=== PATIENT | female | born 1975 | race Caucasian/White ===

== ENCOUNTER 2021-04-10 02:59 | Observation (INO) ==
[2021-04-10] MEDS ORDERED: SODIUM CHLORIDE 0.9% 1000ML 1,000 ML IV ONE (03:30)
--- NOTE | 2021-04-10 03:33 | Emergency Department Note ---
Impression & Plan Suicide attempt by acetaminophen overdose, Depression ED Provider Note Name: CLAIRE LAMAR Age: 46 Sex: F Arrives Via: Walk-In Informant: Patient, ED Provider: Andrew Rivera MD Chief Complaint: Suicide Attempt Impression: As per impressions above Medical Decision Makin-year-old female with a history of depression, hypothyroidism, anxiety arrives for evaluation following a suicide attempt at home. Early in the evening she had taken multiple tablets of Ativan without successfully killing herself and thus took which she reports as 7 g of Tylenol followed by an equally sized handful of Tylenol. Her initial Tylenol level was drawn roughly 2 hours after her ingestion. Patient makes many statements throughout the evaluation and repe at evaluations about how she just wants to and that she does not want us to save her. Patient's mood is somewhat noncongruent as at times she is laughing, primarily about the fact that her Covid test is negative and that she should not of Covid at least. Other labs are unremarkable besides her elevated Tylenol level. I did discuss with poison control who agreed with empirically starting NAC given the patient's stated overdose amount. EKG is unremarkable without evidence of prolonged QTC or other medication involvement. Patient was started on N-acetylcysteine and hospitalist was consulted for further management as she will require serial Tylenol levels and further monitoring. I will note that following admission I did order a 4-hour Tylenol level which returned at 48. This is somewhat confusing given her report of taking 14 g of Tylenol 4 hours earlier which would usually resolve a much higher level than 48. It is also trended down significantly from the 2-hour level. Is unclear whether she actually took as much Tylenol as she claims for whether she took it earlier in the night than she is admitting to. Prior Medical Record and Triage/Nursing Notes reviewed by Me Additional history obtained from chart Differentials:Overdose, toxicologic, infection, hypoglycemia, electrolyte abnormalities, cardiac sources, intracerebral event, neurologic, trauma, as well as other pathologies. Vital Signs: reviewed and remarkable for mild tachycardia Interventions: 1 L normal saline IV, n-acetylcysteine Labs:Reviewed and remarkable for Tylenol level 100 at 2 hours EKG:Per My Interpretation: Indication Overdose: NSR 96 bpm, qtc 459. No Ectopy. No Ischemia. No previous EKGs for comparison Cardiac/Tele Monitoring: Cardiac Monitoring: An Order was placed for continuous cardiac monitoring. The monitor shows a rate of 90 with a normal sinus rhythm. Consults:Dr Carmona Plan: Disposition:Hospitalization. Condition: Good History of Present Illness:46-year-old female arrives following an attempted suicide overdose. Patient states she has been depressed for her entire life and is managed by her PCP on multiple medications for depression. She states she has been having significant issues with her and they have been going through marriage counseling. She states recently she is felt that she is want to . This evening around 8:52 PM she took 17 tablets of 1 mg Ativan by mouth and went to bed she awoke sometime between 1am 2:30a, and as she was still alive she decided to attempt to kill herself again. Patient states she looked up on [employer] how much Tylenol she would have to take to kill herself and counted out 7000 mg of p.o. Tylenol (325 mg tablets) and took this by mouth. She then poured out another almost equal handful of tablets and swallowed those as well. She took these with beer. Patient states she wants to and does not want us to make her better. She is only here because she states her found out she had overdosed and brought her to the ER for further evaluation. Patient denies any previous suicide attempts and denies any other medication ingestion or drug ingestion this evening. She denies cutting herself or another attempt at harm. Patient states that the primary reason for killing herself is that she is upset with her marriage and does not feel her is nice to her. Patient states that marriage counseling has not made things better. She states that just talking to her makes things worse. When asked if she has been physically assaulted patient is evasive and does not answer the question. Patient denies any physical injury currently. She states she does not need medical intervention and just wants to . Patient denies any drug use this evening. She believes she had 2-3 beers. Patient has no history of psychiatric admission. Patient states family has long history of depression denies any suicide attempts. ROS: See above HPI for pertinent positives & negatives. A total of 10 systems reviewed and were otherwise negative. 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 Crying periodically EYES: No scleral icterus, unremarkable pupils. ENT: Mucous membranes moist, no nasal congestion. NECK: No masses appreciated, nomeningismus, trachea is midline. RESPIRATORY: No dyspnea. Clear to auscultation and equal bilaterally. No wheeze, no rhonchi. CARDIOVASCULAR: Tachy.No murmurs, rubs, gallops appreciated. GASTROINTESTINAL: Abdomen soft, non-tender, no peritonitis.Bowel sounds positive.No masses appreciated. BACK: No midline tenderness, no CVA tenderness EXTREMITIES: Normal motion all extremities, no cyanosis, no edema. NEUROLOGIC: Alert and oriented, no acute motor or sensory deficits, no focal weakness, cranial nerves grossly intact. SKIN: No rash, no jaundice, no diaphoresis. PSYCH: Sad, depressed, admit suicidal ideation with attempt GCS: 15 ED Course: Times/Reassessments: Multiple repeat evaluations patient continues to states she just wants to go home and . Critical Care: I have personally spent 37 minutes of critical care time in the direct managem ent of this patient. Acute suicide attempt with Tylenol Overdose requiring N-Acetylcystine and admission. This was a life/limb threatening event. This 37 minutes is in excess of all separately billable procedures. Andrew Rivera MD Past Med/Surg History Social History Smoking Status: Never smoker Feels Safe at Home: Yes Allergies Allergies Allergy/AdvReac Type Severity Reaction Status Date / Time latex Allergy Mild ITCHING Verified 04/10/21 07:26 Home Meds Home Medications Medication Instructions Recorded Confirmed calcium carbonate 600 mg calcium 600 mg PO DAILY #0 05/24/14 04/10/21 (1,500 mg) tablet cholecalciferol (vitamin D3) 125 125 mcg PO DAILY #0 05/24/14 04/10/21 mcg (5,000 unit) tablet (Vitamin D3) Cbd Oil Sublingual 1 tab SUBLINGUAL BID 04/10/21 Collagen Plus Vitamin C 1 tab PO DAILY 04/10/21 04/10/21 buspirone 10 mg tablet 10 mg PO BID 04/10/21 04/10/21 lactobacillus combination no.4 3 0 mmu cells PO DAILY 04/10/21 04/10/21 billion cell capsule (Probiotic) magnesium 200 mg tablet 400 mg PO DAILY 04/10/21 04/10/21 methylsulfonylmethane 1,000 mg 1,000 mg PO DAILY 04/10/21 04/10/21 tablet (MSM) multivitamin 1 tab PO DAILY 04/10/21 04/10/21 mvi,min-folic acid 400 mcg-black 1 tab PO DAILY 04/10/21 04/10/21 coh 40 mg-isoflav 40 mg-jujube tablet (Estroven Menopause) solifenacin 10 mg tablet 10 mg PO DAILY 04/10/21 04/10/21 vitamin B complex 1 tab PO DAILY 04/10/21 04/10/21 vortioxetine 20 mg tablet 20 mg PO DAILY 04/10/21 04/10/21 (Trintellix) Results & Data (ED) Vital Signs Vital Signs - 24 hr 04/10/21 03:11 04/10/21 03:59 04/10/21 05:36 Temperature 36.3 C L Temperature Source Temporal Artery Scan Pulse Rate 107 H Pulse Rate [Left Finger] 88 Respiratory Rate 18 Respiratory Effort / Characteristics Non-Labored Spontaneous Respiratory Depth Normal Blood Pressure 139/78 Blood Pressure [Left Arm] 149/90 H Blood Pressure Mean 98 Blood Pressure Mean [Left Arm] 109 Blood Pressure Position [Left Arm] Sitting Pulse Oximetry 98 97 99 Oxygen Delivery Method Room Air Room Air Oxygen Flow Rate 0 Sepsis Recent Fever Within 48 Hours No Sepsis New/Unexplained Change in Mental Status No Sepsis Action Taken by Nursing No Action Required 04/10/21 07:00 Temperature Temperature Source Pulse Rate Pulse Rate [Left Finger] 83 Respiratory Rate 17 Respiratory Effort / Characteristics Non-Labored Spontaneous Respiratory Depth Normal Blood Pressure Blood Pressure [Left Arm] 140/93 Blood Pressure Mean Blood Pressure Mean [Left Arm] 108 Blood Pressure Position [Left Arm] Pulse Oximetry 95 Oxygen Delivery Method Room Air Oxygen Flow Rate Sepsis Recent Fever Within 48 Hours Sepsis New/Unexplained Change in Mental Status Sepsis Action Taken by Nursing Laboratory Data Result diagrams: 04/10/21 03:40 04/10/21 03:40 Lab Results 04/10/21 04/10/21 04/10/21 Range/Units 03:00 03:40 03:40 WBC 7.52 (4.8-10.8) K/uL RBC 4.13 L (4.2-5.4) M/uL Hgb 12.7 (12.0-16.0) g/dL Hct 37.5 (37-47) % MCV 90.8 (80-100) fL MCH 30.8 (25-34) pg MCHC 33.9 (32-36) g/dL RDW Std Deviation 42.9 (36.4-46.3) fL RDW Coeff of Keri 13.0 (11.5-14.5) % Plt Count 346 (130-400) K/uL MPV 9.3 (7.4-10.4) fL Immature Gran % (Auto) 0.3 % Neut % (Auto) 56.8 % Lymph % (Auto) 32.2 % Bates % (Auto) 9.2 % Eos % (Auto) 1.2 % Baso % (Auto) 0.3 % Neut # (Auto) 4.28 (1.4-6.5) K/uL Lymph # (Auto) 2.42 (1.2-3.4) K/uL Bates # (Auto) 0.69 H (0.11-0.59) K/uL Eos # (Auto) 0.09 (0-0.5) K/uL Baso # (Auto) 0.02 (0-0.2) K/uL Immature Gran # (Auto) 0.02 (0.00-0.02) K/uL PT (9.0-12.0) Seconds INR (0.9-1.1) APTT (21.0-31.0) Seconds PTT Ratio Sodium 137 (136-145) mmol/L Potassium 3.4 L (3.5-5.1) mmol/L Chloride 104 (98-107) mmol/L Carbon Dioxide 25 (21-32) mmol/L Anion Gap 8.0 (3-11) BUN 12 (7-18) mg/dl Creatinine 0.95 (0.6-1.2) mg/dl Est Cr Clr Drug Dosing 68.4 ml/min Est GFR ( Amer) 82.1 ml/min Est GFR (Non-Af Amer) 70.8 ml/min BUN/Creatinine Ratio 12.9 (10-20) Glucose 100 H (70-99) mg/dl Calcium 8.8 (8.5-10.1) mg/dl Total Bilirubin 0.3 (0.2-1) mg/dl Direct Bilirubin (0-0.2) mg/dl AST 14 L (15-37) U/L ALT 22 (12-78) Alkaline Phosphatase 101 (45-117) U/L Total Protein 7.8 (6.4-8.2) gm/dl Albumin 3.6 (3.4-5.0) gm/dl Globulin 4.2 H (2.5-4.0) gm/dl Albumin/Globulin Ratio 0.9 (0.9-2) TSH 3.290 (0.300-4.500) uIu/ml HCG, Qual (Negative) Urine Color Urine Appearance (Clear) Urine pH (4.5-7.5) Ur Specific [place] (1.000-1.030) Urine Protein (Negative) Urine Glucose (UA) (Negative) Urine Ketones (Negative) Urine Blood (Negative) Urine Nitrite (Negative) Urine Bilirubin (Negative) Urine Urobilinogen (Negative) Ur Leukocyte Esterase (Negative) Salicylates (2.8-20) mg/dl Urine Opiates Screen (Neg) Ur Methadone, Qual (Neg) Acetaminophen (10-30) ug/ml Urine Barbiturates (Neg) Ur Phencyclidine (PCP) (Neg) U Amphetamin/Meth Scrn (Neg) MDMA (Ecstasy) Screen (Neg) U Benzodiazepines Scrn (Neg) Ur Cocaine Metabolite (Neg) U Marijuana (THC) Screen (Neg) Ethyl Alcohol mg/dL (0-3) mg/dl SARS-CoV-2, RNA, NAAT NEGATIVE (NEGATIVE) 04/10/21 04/10/21 04/10/21 Range/Units 03:40 03:40 03:40 WBC (4.8-10.8) K/uL RBC (4.2-5.4) M/uL Hgb (12.0-16.0) g/dL Hct (37-47) % MCV (80-100) fL MCH (25-34) pg MCHC (32-36) g/dL RDW Std Deviation (36.4-46.3) fL RDW Coeff of Keri (11.5-14.5) % Plt Count (130-400) K/uL MPV (7.4-10.4) fL Immature Gran % (Auto) % Neut % (Auto) % Lymph % (Auto) % Bates % (Auto) % Eos % (Auto) % Baso % (Auto) % Neut # (Auto) (1.4-6.5) K/uL Lymph # (Auto) (1.2-3.4) K/uL Bates # (Auto) (0.11-0.59) K/uL Eos # (Auto) (0-0.5) K/uL Baso # (Auto) (0-0.2) K/uL Immature Gran # (Auto) (0.00-0.02) K/uL PT 9.9 (9.0-12.0) Seconds INR 1.0 (0.9-1.1) APTT 28.4 (21.0-31.0) Seconds PTT Ratio 1.1 Sodium (136-145) mmol/L Potassium (3.5-5.1) mmol/L Chloride (98-107) mmol/L Carbon Dioxide (21-32) mmol/L Anion Gap (3-11) BUN (7-18) mg/dl Creatinine (0.6-1.2) mg/dl Est Cr Clr Drug Dosing ml/min Est GFR ( Amer) ml/min Est GFR (Non-Af Amer) ml/min BUN/Creatinine Ratio (10-20) Glucose (70-99) mg/dl Calcium (8.5-10.1) mg/dl Total Bilirubin (0.2-1) mg/dl Direct Bilirubin (0-0.2) mg/dl AST (15-37) U/L ALT (12-78) Alkaline Phosphatase (45-117) U/L Total Protein (6.4-8.2) gm/dl Albumin (3.4-5.0) gm/dl Globulin (2.5-4.0) gm/dl Albumin/Globulin Ratio (0.9-2) TSH (0.300-4.500) uIu/ml HCG, Qual Negative (Negative) Urine Color Urine Appearance (Clear) Urine pH (4.5-7.5) Ur Specific [place] (1.000-1.030) Urine Protein (Negative) Urine Glucose (UA) (Negative) Urine Ketones (Negative) Urine Blood (Negative) Urine Nitrite (Negative) Urine Bilirubin (Negative) Urine Urobilinogen (Negative) Ur Leukocyte Esterase (Negative) Salicylates < 1.7 L (2.8-20) mg/dl Urine Opiates Screen (Neg) Ur Methadone, Qual (Neg) Acetaminophen 100 H (10-30) ug/ml Urine Barbiturates (Neg) Ur Phencyclidine (PCP) (Neg) U Amphetamin/Meth Scrn (Neg) MDMA (Ecstasy) Screen (Neg) U Benzodiazepines Scrn (Neg) Ur Cocaine Metabolite (Neg) U Marijuana (THC) Screen (Neg) Ethyl Alcohol mg/dL (0-3) mg/dl SARS-CoV-2, RNA, NAAT (NEGATIVE) 04/10/21 04/10/21 04/10/21 Range/Units 03:49 03:49 04:09 WBC (4.8-10.8) K/uL RBC (4.2-5.4) M/uL Hgb (12.0-16.0) g/dL Hct (37-47) % MCV (80-100) fL MCH (25-34) pg MCHC (32-36) g/dL RDW Std Deviation (36.4-46.3) fL RDW Coeff of Keri (11.5-14.5) % Plt Count (130-400) K/uL MPV (7.4-10.4) fL Immature Gran % (Auto) % Neut % (Auto) % Lymph % (Auto) % Bates % (Auto) % Eos % (Auto) % Baso % (Auto) % Neut # (Auto) (1.4-6.5) K/uL Lymph # (Auto) (1.2-3.4) K/uL Bates # (Auto) (0.11-0.59) K/uL Eos # (Auto) (0-0.5) K/uL Baso # (Auto) (0-0.2) K/uL Immature Gran # (Auto) (0.00-0.02) K/uL PT (9.0-12.0) Seconds INR (0.9-1.1) APTT (21.0-31.0) Seconds PTT Ratio Sodium (136-145) mmol/L Potassium (3.5-5.1) mmol/L Chloride (98-107) mmol/L Carbon Dioxide (21-32) mmol/L Anion Gap (3-11) BUN (7-18) mg/dl Creatinine (0.6-1.2) mg/dl Est Cr Clr Drug Dosing ml/min Est GFR ( Amer) ml/min Est GFR (Non-Af Amer) ml/min BUN/Creatinine Ratio (10-20) Glucose (70-99) mg/dl Calcium (8.5-10.1) mg/dl Total Bilirubin (0.2-1) mg/dl Direct Bilirubin (0-0.2) mg/dl AST (15-37) U/L ALT (12-78) Alkaline Phosphatase (45-117) U/L Total Protein (6.4-8.2) gm/dl Albumin (3.4-5.0) gm/dl Globulin (2.5-4.0) gm/dl Albumin/Globulin Ratio (0.9-2) TSH (0.300-4.500) uIu/ml HCG, Qual (Negative) Urine Color Yellow Urine Appearance Clear (Clear) Urine pH 5.0 (4.5-7.5) Ur Specific [place] 1.035 H (1.000-1.030) Urine Protein Negative (Negative) Urine Glucose (UA) Negative (Negative) Urine Ketones Negative (Negative) Urine Blood Negative (Negative) Urine Nitrite Negative (Negative) Urine Bilirubin Negative (Negative) Urine Urobilinogen Negative (Negative) Ur Leukocyte Esterase Negative (Negative) Salicylates (2.8-20) mg/dl Urine Opiates Screen Neg (Neg) Ur Methadone, Qual Neg (Neg) Acetaminophen (10-30) ug/ml Urine Barbiturates Neg (Neg) Ur Phencyclidine (PCP) Neg (Neg) U Amphetamin/Meth Scrn Neg (Neg) MDMA (Ecstasy) Screen Neg (Neg) U Benzodiazepines Scrn Neg (Neg) Ur Cocaine Metabolite Neg (Neg) U Marijuana (THC) Screen Pos H (Neg) Ethyl Alcohol mg/dL 11.0 H (0-3) mg/dl SARS-CoV-2, RNA, NAAT (NEGATIVE) 04/10/21 04/10/21 Range/Units 06:06 06:06 WBC (4.8-10.8) K/uL RBC (4.2-5.4) M/uL Hgb (12.0-16.0) g/dL Hct (37-47) % MCV (80-100) fL MCH (25-34) pg MCHC (32-36) g/dL RDW Std Deviation (36.4-46.3) fL RDW Coeff of Keri (11.5-14.5) % Plt Count (130-400) K/uL MPV (7.4-10.4) fL Immature Gran % (Auto) % Neut % (Auto) % Lymph % (Auto) % Bates % (Auto) % Eos % (Auto) % Baso % (Auto) % Neut # (Auto) (1.4-6.5) K/uL Lymph # (Auto) (1.2-3.4) K/uL Bates # (Auto) (0.11-0.59) K/uL Eos # (Auto) (0-0.5) K/uL Baso # (Auto) (0-0.2) K/uL Immature Gran # (Auto) (0.00-0.02) K/uL PT (9.0-12.0) Seconds INR (0.9-1.1) APTT (21.0-31.0) Seconds PTT Ratio Sodium (136-145) mmol/L Potassium (3.5-5.1) mmol/L Chloride (98-107) mmol/L Carbon Dioxide (21-32) mmol/L Anion Gap (3-11) BUN (7-18) mg/dl Creatinine (0.6-1.2) mg/dl Est Cr Clr Drug Dosing ml/min Est GFR ( Amer) ml/min Est GFR (Non-Af Amer) ml/min BUN/Creatinine Ratio (10-20) Glucose (70-99) mg/dl Calcium (8.5-10.1) mg/dl Total Bilirubin 0.2 (0.2-1) mg/dl Direct Bilirubin < 0.1 (0-0.2) mg/dl AST 13 L (15-37) U/L ALT 27 (12-78) Alkaline Phosphatase 88 (45-117) U/L Total Protein 7.0 (6.4-8.2) gm/dl Albumin 3.1 L (3.4-5.0) gm/dl Globulin (2.5-4.0) gm/dl Albumin/Globulin Ratio (0.9-2) TSH (0.300-4.500) uIu/ml HCG, Qual (Negative) Urine Color Urine Appearance (Clear) Urine pH (4.5-7.5) Ur Specific [place] (1.000-1.030) Urine Protein (Negative) Urine Glucose (UA) (Negative) Urine Ketones (Negative) Urine Blood (Negative) Urine Nitrite (Negative) Urine Bilirubin (Negative) Urine Urobilinogen (Negative) Ur Leukocyte Esterase (Negative) Salicylates (2.8-20) mg/dl Urine Opiates Screen (Neg) Ur Methadone, Qual (Neg) Acetaminophen 48 H (10-30) ug/ml Urine Barbiturates (Neg) Ur Phencyclidine (PCP) (Neg) U Amphetamin/Meth Scrn (Neg) MDMA (Ecstasy) Screen (Neg) U Benzodiazepines Scrn (Neg) Ur Cocaine Metabolite (Neg) U Marijuana (THC) Screen (Neg) Ethyl Alcohol mg/dL (0-3) mg/dl SARS-CoV-2, RNA, NAAT (NEGATIVE) Administered Medications Acetylcysteine 4,070 mg/ (Dextrose) 520.35 mls @ 125 mls/hr IV ONCE ONE Stop: 04/10/21 08:43 Last Infusion: 04/10/21 07:26 Dose: 0 mls/hr Documented by: [id number] Admin: 04/10/21 06:24 Dose: 125 mls/hr Documented by: [id number] Acetylcysteine 8,130 mg/ (Dextrose) 1,040.65 mls @ 62.5 mls/hr IV ONCE ONE Stop: 04/11/21 01:13 Last Admin: 04/10/21 07:42 Dose: Not Given Documented by: [id number] Discontinued Medications Acetylcysteine (Acetylcysteine Iv 21 Hr Regimen (>40kg)) 1 ea IV NOW STA; Protocol Stop: 04/10/21 03:35 Last Admin: 04/10/21 06:27 Dose: Not Given Documented by: [id number] Sodium Chloride (Nss 1000ml) 1,000 mls @ 999 mls/hr IV .Q1H1M ONE Stop: 04/10/21 04:30 Last Infusion: 04/10/21 05:12 Dose: 0 mls/hr Documented by: [id number] Admin: 04/10/21 04:00 Dose: 999 mls/hr Documented by: [id number] Acetylcysteine 12,200 mg/ (Dextrose) 261 mls @ 200 mls/hr IV ONCE ONE Stop: 04/10/21 04:52 Last Infusion: 04/10/21 06:16 Dose: 0 mls/hr Documented by: [id number] Admin: 04/10/21 04:51 Dose: 200 mls/hr Documented by: [id number] Potassium Chloride (Potassium Chloride Crtab 20 Meq Tabcr) 20 meq PO NOW STA Stop: 04/10/21 07:03 Last Admin: 04/10/21 07:26 Dose: 20 meq Documented by: [id number] Discharge Plan Visit Data Chief Complaint: Overdose (Intentional) Stated Complaint: OVERDOSE ON TYLANOL AND ADAVAN ED Provider: Andrew Rivera Discharge Problem: Suicide attempt by acetaminophen overdose, Depression Forms Stand Alone Forms: [facility], Suicide Prevention Resources Prescriptions Prescriptions: No Action calcium carbonate 600 mg calcium (1,500 mg) Tablet 600 mg PO DAILY Qty: 0 RF: 0 cholecalciferol (vitamin D3) [Vitamin D3] 125 mcg (5,000 unit) Tablet 125 mcg PO DAILY Qty: 0 RF: 0 buspirone 10 mg tablet 10 mg PO BID RF: 0 vitamin B complex [Super B Complex] Tablet 1 tab PO DAILY RF: 0 methylsulfonylmethane [MSM] 1,000 mg Tablet 1,000 mg PO DAILY RF: 0 solifenacin 10 mg tablet 10 mg PO DAILY RF: 0 Trintellix 20 mg tablet 20 mg PO DAILY RF: 0 Estroven Menopause 400 mcg-40 mg- 40 mg-100 mg Tablet 1 tab PO DAILY RF: 0 Collagen Plus Vitamin C 1 tab PO DAILY RF: 0 multivitamin Tablet 1 tab PO DAILY RF: 0 magnesium 200 mg Tablet 400 mg PO DAILY RF: 0 Probiotic 3 billion cell Capsule 0 mmu cells PO DAILY RF: 0 Cbd Oil Sublingual 1 tab sublingual BID RF: 0 Referrals Referrals: Konrad Graham DO [Primary Care Provider] - Discharge Problem: Suicide attempt by acetaminophen overdose Qualifiers: Encounter type: initial encounter Qualified Code(s): T39.1X2A - Poisoning by 4- Aminophenol derivatives, intentional self-harm, initial encounter Depression Qualifiers: Depression Type: major depressive disorder Major depression recurrence: recurrent Active/Remission status: currently active Major depression episode severity: severe Psychotic features: without psychotic features Qualified Code(s): F33.2 - Major depressive disorder, recurrent severe without psychotic features
[2021-04-10] MEDS ORDERED: DEXTROSE 5% IV ONE ×3 (03:34→08:34)
[2021-04-10] MEDS ORDERED: ACETYLCYSTEINE IV ONE ×3 (03:34→08:34)
[2021-04-10] MEDS ORDERED: AcetylCYSTEINE IV 21 HR REGIMEN (>40KG) IV STA (03:34)
[2021-04-10 03:58] LABS: Basophils # (auto) 0.02 K/uL (0-0.2); Basophils % (auto) 0.3 %; Eosinophils # (auto) 0.09 K/uL (0-0.5); Eosinophils % (auto) 1.2 %; Hematocrit (blood only) 37.5 % (37-47); Hemoglobin 12.7 g/dL (12.0-16.0); Immature Granulocytes # (auto) 0.02 K/uL (0.00-0.02); Immature Granulocytes % (auto) 0.3 %; Lymphocytes # (auto) 2.42 K/uL (1.2-3.4); Lymphocytes % (auto) 32.2 %; Mean Corpuscular Hemoglobin 30.8 pg (25-34); Mean Corpuscular Hgb Conc 33.9 g/dL (32-36); Mean Corpuscular Volume 90.8 fL (80-100); Mean Platelet Volume 9.3 fL (7.4-10.4); Monocytes # (auto) 0.69 K/uL (0.11-0.59); Monocytes % (auto) 9.2 %; Neutrophils # (auto) 4.28 K/uL (1.4-6.5); Neutrophils % (auto) 56.8 %; Platelet Count 346 K/uL (130-400); RDW Standard Deviation 42.9 fL (36.4-46.3); Red Blood Count 4.13 M/uL (4.2-5.4); White Blood Count 7.52 K/uL (4.8-10.8)
[2021-04-10 04:07] LABS: Partial Thromboplastin Ratio 1.1; Partial Thromboplastin Time 28.4 Seconds (21.0-31.0); Prothrombin Time 9.9 Seconds (9.0-12.0)
[2021-04-10 04:09] LABS: Appearance Urine Clear (Clear); Bilirubin Urine Negative (Negative); Blood Urine Negative (Negative); Color Urine Yellow; Glucose Urine UA Negative (Negative); Ketones Urine Negative (Negative); Leukocyte Esterase Urine Negative (Negative); Nitrite Urine Negative (Negative); Protein Urine Negative (Negative); Specific Gravity Urine 1.035 (1.000-1.030); Urobilinogen Urine Negative (Negative)
[2021-04-10 04:12] LABS: Albumin Level 3.6 gm/dl (3.4-5.0); BUN Creatinine Ratio 12.9 (10-20); Calcium 8.8 mg/dl (8.5-10.1); Creatinine Clr Calc Pharmacy 68.4 ml/min; Est GFR (African American) 82.1 ml/min; Est GFR (Non-African American) 70.8 ml/min; Potassium 3.4 mmol/L (3.5-5.1)
[2021-04-10 04:21] LABS: Pregnancy Test, Serum Negative (Negative)
[2021-04-10 04:23] LABS: Albumin Globulin Ratio 0.9 (0.9-2); Bilirubin,Total 0.3 mg/dl (0.2-1); Globulin 4.2 gm/dl (2.5-4.0); Thyroid Stimulating Hormone 3.29 uIu/ml (0.300-4.500); Total Protein 7.8 gm/dl (6.4-8.2)
[2021-04-10 04:30] LABS: Acetaminophen 100 ug/ml (10-30); Salicylate < 1.7 mg/dl (2.8-20)
[2021-04-10 04:38] LABS: Amphetamines+Metham, Urine Neg (Neg); Barbiturates, Urine Neg (Neg); Benzodiazepine, Urine Neg (Neg); Cocaine, Urine Neg (Neg); MDMA (Ecstacy), Urine Neg (Neg); Methadone, Urine Neg (Neg); Opiate, Urine Neg (Neg); Phencyclidine, Urine Neg (Neg)
[2021-04-10 06:46] LABS: Alanine Aminotransferase 27 (12-78); Albumin Level 3.1 gm/dl (3.4-5.0); Alkaline Phosphatase 88 U/L (45-117); Aspartate Aminotransferase 13 U/L (15-37); Bilirubin Direct < 0.1 mg/dl (0-0.2); Bilirubin,Total 0.2 mg/dl (0.2-1)
[2021-04-10] MEDS ORDERED: POTASSIUM CHLORIDE CRTAB 20 MEQ TABCR PO STA (07:02)
--- NOTE | 2021-04-10 07:51 | Electrocardiogram Report ---
Test Reason : Blood Pressure : / mmHG Vent. Rate : 096 BPM Atrial Rate : 096 BPM P-R Int : 122 ms QRS Dur : 082 ms QT Int : 364 ms P-R-T Axes : 067 080 013 degrees QTc Int : 459 ms Normal sinus rhythm Possible Left atrial enlargement Borderline ECG No previous ECGs available Confirmed by Kp Qiu ([id number]) on 04/10/2021 7:50:54 AM Referred By: REFERRED SELF Confirmed By:Esteban Qiu
--- NOTE | 2021-04-10 08:39 | History and Physical Report ---
DATE OF ADMISSION: 04/10/2021 CHIEF COMPLAINT: Tylenol overdose, intentional. HISTORY OF PRESENT ILLNESS: This is a 46-year-old female with past medical history significant for depression, hypothyroidism, GERD, urge incontinence of urine, history of sarcoidosis, presents with Tylenol overdose. The patient says that she took 17 tablets of Ativan around 7:00 p.m. in the evening to end her life because she is depressed and she woke up around 2:00-2:30am and as she was still alive, so,she took about 14 tablets of 500mg Tylenol and again same amount, approximately total of 14 grams. Her noted that she overdosed and she was brought into the hospital. The patient is alert and awake, tearful. She wants to go home and . She says she was diagnosed with depression at the age of 18. Medicines are not working. Her Tylenol level was 100 at 2 hours from the ingestion and she was started on N-acetylcysteine as per recommendation of Poison Control. Currently, Poison Control wanted to recheck, her labs which are pending and decide whether to continue N- acetylcysteine or not. Her LFTs are okay so far. EKG is okay. The patient denies any headache. No dizziness, no blurred visions, no earache, no runny nose, no sore throat. No cough. Appetite is okay. No chest pain or shortness of breath, no nausea, no vomiting, no abdominal pain, normal bowel and bladder movements. Hemodynamically stable. ALLERGIES: LATEX. PAST MEDICAL HISTORY: As mentioned above. PAST SURGICAL HISTORY: Colposcopy of cervix with biopsy, hysteroscopy, endometrial ablation, treatment for molar . MEDICATIONS: As per [facility], the patient is on Trintellix 20 mg 1 tablet p.o. daily, lorazepam 1 mg p.o. at bedtime, solifenacin succinate 10 mg p.o. daily, buspirone 10 mg p.o. b.i.d., albuterol 2 puffs p.r.n. FAMILY HISTORY: Significant for father had lung cancer; uncle had throat cancer secondary to smoking; paternal aunt has uterine cancer; brother has high cholesterol; paternal grandfather had [place]; uncle had [place]. SOCIAL HISTORY: . Quit smoking in 1999, smoked half pack a day for 10 years. Alcohol rarely. No drug use. REVIEW OF SYSTEMS: As per HPI. Rest of the review of systems is negative. PHYSICAL EXAMINATION: GENERAL: The patient is obese, not in acute distress, somewhat tearful. VITAL SIGNS: Temperature 36.3, pulse 80, respiratory rate 18, blood pressure 114/90, oxygen 99% on room air. HEENT: Atraumatic. Extraocular muscles intact. No facial droop. Oral mucosa moist. NECK: No JVD, no neck masses. CARDIOVASCULAR: S1 and S2 heard. Regular rate and rhythm. No murmur, no gallop. RESPIRATORY SYSTEM: Normal AP diameter. No accessory muscle use. No wheezing, no crackles. ABDOMEN: Soft, bowel sounds present, nontender, no distention. CENTRAL NERVOUS SYSTEM: Alert and oriented. Speech is clear. No facial droop. Obeys simple commands. Moves extremities. EXTREMITIES: No edema, no erythema. LABORATORY DATA: WBC 7.5, hemoglobin 12.7, hematocrit 37.5, platelets 346. PT 9.9, INR 1, APTT 28.4. Sodium 137, potassium 3.4, chloride 104, bicarbonate 25, BUN 12, creatinine 0.9, serum glucose 100, calcium 8.8, total bilirubin was 0.3, AST 14, ALT 22, alkaline phosphatase 101. TSH 3.2. HCG qualitative negative. Urinalysis negative. Toxicology screen; salicylate less than 1.7, marijuana screen is positive, ethyl alcohol 11, Tylenol level 100, SARS-CoV-2 PCR negative. EKG: Normal sinus rhythm at a rate of 96. No previous ECGs available. ASSESSMENT AND PLAN: This is a 46-year-old female with history of depression, who presents with suicidal ideation and intentional Tylenol overdose. 1. Intentional Tylenol overdose, suicidal ideation: Tylenol level after 2 hours of ingestion is 100. Poison Control recommended N-acetylcysteine. Repeat laboratories are pending. Further recommendations as per Poison Control. EKG is okay. Liver function tests are okay. Awaiting repeat liver function tests. Closely monitor in the telemetry floor. IV fluids. One on one, suicidal precautions. Consult psychiatry.GI consult. 2. Depression: As per the [facility], the patient is on Ativan and buspirone, which we will hold until psychiatry recommendations. 3. History of urge incontinence: On VESIcare. 4. History of hypothyroidism: Not on any medications. Her TSH is okay. 5. Deep venous thrombosis prophylaxis: Sequential compression devices for now. DISPOSITION: Closely monitor in tele floor. Expect to discharge home when medically stable. Full code for now. Job ID: [id number] MTDD
[2021-04-10] MEDS ORDERED: NITROGLYCERIN SL 0.4 MG/TAB TAB SL PRN (10:19)
[2021-04-10] MEDS: SODIUM CHLORIDE 0.9% 1000ML 1,000 ML IV SCH ×2 (12:28→20:16)
--- NOTE | 2021-04-10 13:13 | Gastrointestinal Consultation ---
Date of Consultation April 10, 2021 Assessment & Plan (1) Suicide attempt by acetaminophen overdose: Stat Phosphorus level. (Result = 2.5 which is low end of normal range) Understand that NAC was instituted and DC'ed according to Poison Control Center direction. Continued monitoring of INR and tylenol levels per NAC protocols. Will follow peripherally. Please notify us if LFTs elevation - if occurs would recommend imaging such as RUQ US. Supervising Physician Co-Signing Physician Notes Attg add: I interviewed and examined pt, reviewed chart and labs. Pt with APAP ingestion, levels do not indicate a need for NAC per [facility] nomogram. Pt denies using chronic APAP, chronic ETOH, extended release APAP. Will recheck LFT's tomorrow. History of Present Illness Reason for Consultation: Elevated LFTs Requesting Physician: Dr Carmona Attending Physician: Cheryl Amaya MD History of Present Illness Ms. Gela Flaherty is a 46 yr old female pt of Dr. Konrad Graham with a hx of sarcoidosis, depression, hypothyroidism, GERD, who attempted suicide around 1AM this morning, taking approx 14 Grams of the regular strength, instant release Tylenol. She had also taken several doses of Ativan and having drank alcohol (admits to "a lot" ). GI is consulted for Tylenol OD. She is awake, alert, oriented and cooperative. Her is at the bedside. She is very specific about time of ingestion, gives a clear description of the product ("not extra strength) and the amount ("counted out 7gms and also had more still in her hand so also took that). She denies having taken tylenol on a regular basis or tylenol any time prior - except for tx of side effects from COVID vaccine but not recently. LABS: Tylenol level at 3:40 AM ( approx 2 hrs after ingestion) = 100 at 6:06AM (4 hrs after ingestion) = 48. LFTs are normal at both measures. ETOH elevated at 11, Marijuana (+) Allergies Allergy/AdvReac Type Severity Reaction Status Date / Time latex Allergy Mild ITCHING Verified 04/10/21 07:26 Home Medications Medication Instructions Recorded Confirmed Type calcium carbonate 600 mg calcium 600 mg PO DAILY #0 05/24/14 04/10/21 History (1,500 mg) tablet cholecalciferol (vitamin D3) 125 125 mcg PO DAILY #0 05/24/14 04/10/21 History mcg (5,000 unit) tablet (Vitamin D3) Cbd Oil Sublingual 1 tab SUBLINGUAL BID 04/10/21 History Collagen Plus Vitamin C 1 tab PO DAILY 04/10/21 04/10/21 History buspirone 10 mg tablet 10 mg PO BID 04/10/21 04/10/21 History lactobacillus combination no.4 3 0 mmu cells PO DAILY 04/10/21 04/10/21 History billion cell capsule (Probiotic) magnesium 200 mg tablet 400 mg PO DAILY 04/10/21 04/10/21 History methylsulfonylmethane 1,000 mg 1,000 mg PO DAILY 04/10/21 04/10/21 History tablet (MSM) multivitamin 1 tab PO DAILY 04/10/21 04/10/21 History mvi,min-folic acid 400 mcg-black 1 tab PO DAILY 04/10/21 04/10/21 History coh 40 mg-isoflav 40 mg-jujube tablet (Estroven Menopause) solifenacin 10 mg tablet 10 mg PO DAILY 04/10/21 04/10/21 History vitamin B complex 1 tab PO DAILY 04/10/21 04/10/21 History vortioxetine 20 mg tablet 20 mg PO DAILY 04/10/21 04/10/21 History (Trintellix) Patient History Medical History (Updated 04/10/21 @ 13:44 by Ale Escalante MD) Depression Social History Smoking Status: Never smoker Feels Safe at Home: Yes Review of Systems Review of Systems: ROS: Gen: Denies weakness, fevers, weight loss Eyes: No eye redness, or pain, no recent vision changes Resp: No SOB, no cough Cardio: No palpitations/irregular beats, no chest pain GI: No abdominal pain, no nausea/vomiting : Denies pain on urination Skin: No jaundice, itching or new rashes Psych: reports depression, suicide attempt Physical Exam Constitutional: well developed and cooperative Eyes: PERRL, conjunctivae normal, anicteric sclerae Respiratory: normal respiratory effort, lungs clear to auscultation Cardiovascular: RRR, no murmur, no edema Gastrointestinal (Abdomen): normal bowel sounds, soft, nontender, no hepatosplenomegaly Skin: no rashes, warm and dry normal turgor Neurologic: PERRL, EOMI, accommodation nl, no face palsy, no dysarthria awake; not confused Psychiatric: A+Ox3, euthymic affect Orientation: alert, oriented x 3 and cooperative Results & Data ([facility]) Vital Signs (Past 12 Hours) Vital Signs Temp Pulse Pulse Resp BP BP Pulse Ox 04/10/21 10:18 94 H 16 102/61 97 04/10/21 09:00 91 H 20 124/65 98 04/10/21 07:00 83 17 140/93 95 04/10/21 05:36 88 149/90 H 99 04/10/21 03:59 97 04/10/21 03:11 36.3 C L 107 H 18 139/78 98 Laboratory Results WBC 7.5, Hb 12.7, Hct 27.5, INR 1.0, PT 28, Na 137, K 3.4, Cl 104, CO2 25, BUN 12, Cr 0.95, glucose 100 T Bili 0.3, AST 14, ALT 22, Alk Phos 101 (1) Suicide attempt by acetaminophen overdose Encounter type: initial encounter Qualified Code(s): T39.1X2A - Poisoning by 4-Aminophenol derivatives, intentional self-harm, initial encounter
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
--- NOTE | 2021-04-10 14:11 | Communication Note ---
Date of Service: April 10, 2021 Patient seen and examined Agree with plans as detailed in H/P this AM by Dr Carmona NAC discontinued based on labs as well as poison control recs GI evaluation noted Psych eval noted Will monitor LFT for now. If stable, will clear medically for dc to inpatient psych For now, will continue management in med service till tomorrow Cannot leave AMA per psych
--- NOTE | 2021-04-10 16:50 | Electrocardiogram Report ---
Test Reason : Blood Pressure : / mmHG Vent. Rate : 086 BPM Atrial Rate : 086 BPM P-R Int : 126 ms QRS Dur : 078 ms QT Int : 370 ms P-R-T Axes : 057 085 042 degrees QTc Int : 442 ms Normal sinus rhythm Low voltage QRS Borderline ECG When compared with ECG of 10-APR-2021 03:49, Nonspecific T wave abnormality has replaced inverted T waves in Inferior leads Confirmed by Kp Qiu ([id number]) on 04/10/2021 4:49:50 PM Referred By: REFERRED SELF Confirmed By:Esteban Qiu
[2021-04-10] MEDS ORDERED: MELATONIN 3 MG TAB PO ONE (21:00)
[2021-04-11] MEDS: SODIUM CHLORIDE 0.9% 1000ML 1,000 ML IV SCH ×2 (03:44→11:32)
[2021-04-11 05:12] LABS: Hematocrit (blood only) 33.5 % (37-47); Hemoglobin 11.1 g/dL (12.0-16.0); Mean Corpuscular Hemoglobin 30.3 pg (25-34); Mean Corpuscular Hgb Conc 33.1 g/dL (32-36); Mean Corpuscular Volume 91.5 fL (80-100); Mean Platelet Volume 9.5 fL (7.4-10.4); Platelet Count 298 K/uL (130-400); RDW Coefficient of Variation 13.3 % (11.5-14.5); RDW Standard Deviation 44.2 fL (36.4-46.3); Red Blood Count 3.66 M/uL (4.2-5.4); White Blood Count 5.98 K/uL (4.8-10.8)
[2021-04-11 05:59] LABS: Albumin Level 2.8 gm/dl (3.4-5.0); BUN Creatinine Ratio 9.6 (10-20); Calcium 8.2 mg/dl (8.5-10.1); Creatinine Clr Calc Pharmacy 91.5 ml/min; Est GFR (African American) 116.7 ml/min; Est GFR (Non-African American) 100.7 ml/min; Potassium 3.9 mmol/L (3.5-5.1)
[2021-04-11 06:00] LABS: Albumin Globulin Ratio 0.8 (0.9-2); Bilirubin,Total 0.3 mg/dl (0.2-1); Globulin 3.4 gm/dl (2.5-4.0); Phosphorus 2.7 mg/dl (2.5-4.9); Total Protein 6.2 gm/dl (6.4-8.2)
--- NOTE | 2021-04-11 07:08 | Gastroenterology Progress Note ---
Date of Service April 11, 2021 Assessment & Plan Admission and Anticipated Discharge Date Admission Date: April 10, 2021 Subjective LFT's and creatinine remain normal approx 30 hours after acute acetaminophen overdose. Will sign off. Results & Data ([facility]) Vital Signs (Past 12 Hours) Vital Signs Pulse Resp BP Pulse Ox Pulse Ox 04/11/21 03:41 74 20 118/80 95 95 04/11/21 00:30 88 16 144/76 H 100
--- NOTE | 2021-04-11 13:20 | Discharge Summary ---
Date of Service April 11, 2021 Admission HPI Per Admitting Provider This is a 46-year-old female with past medical history significant for depression, hypothyroidism, GERD, urge incontinence of urine, history of sarcoidosis, presents with Tylenol overdose. The patient says that she took 17 tablets of Ativan around 7:00 p.m. in the evening to end her life because she is depressed and she woke up around 2:00-2:30am and as she was still alive, so,she took about 14 tablets of 500mg Tylenol and again same amount, approximately total of 14 grams. Her noted that she overdosed and she was brought into the hospital. The patient is alert and awake, tearful. She wants to go home and . She says she was diagnosed with depression at the age of 18. Medicines are not working. Her Tylenol level was 100 at 2 hours from the ingestion and she was started on N-acetylcysteine as per recommendation of Poison Control. Currently, Poison Control wanted to recheck, her labs which are pending and decide whether to continue N-acetylcysteine or not. Her LFTs are okay so far. EKG is okay. The patient denies any headache. No dizziness, no blurred visions, no earache, no runny nose, no sore throat. No cough. Appetite is okay. No chest pain or shortness of breath, no nausea, no vomiting, no abdominal pain, normal bowel and bladder movements. Hemodynamically stable. Admission Exam Per Admitting Provider GENERAL: The patient is obese, not in acute distress, somewhat tearful. VITAL SIGNS: Temperature 36.3, pulse 80, respiratory rate 18, blood pressure 114/90, oxygen 99% on room air. HEENT: Atraumatic. Extraocular muscles intact. No facial droop. Oral mucosa moist. NECK: No JVD, no neck masses. CARDIOVASCULAR: S1 and S2 heard. Regular rate and rhythm. No murmur, no gallop. RESPIRATORY SYSTEM: Normal AP diameter. No accessory muscle use. No wheezing, no crackles. ABDOMEN: Soft, bowel sounds present, nontender, no distention. CENTRAL NERVOUS SYSTEM: Alert and oriented. Speech is clear. No facial droop. Obeys simple commands. Moves extremities. EXTREMITIES: No edema, no erythema. Principal Diagnosis Intentional drug overdose Suicidal attempt Depression Discharge Exam Constitutional + well hydrated; no acute distress Eyes PERRL, conjunctivae normal, anicteric sclerae ENMT external ear and nose normal, oropharynx normal Respiratory normal respiratory effort, lungs clear to auscultation Cardiovascular RRR S1 S2 Gastrointestinal (Abdomen) normal bowel sounds, soft, nontender, no hepatosplenomegaly Musculoskeletal no cyanosis or clubbing, extremities motor strength 5/5 Neurologic PERRL, EOMI, accommodation nl, no face palsy, no dysarthria Psychiatric AOX3. Denied suicidal ideation today. Still depressed Discharge Data Allergies Allergy/AdvReac Type Severity Reaction Status Date / Time latex Allergy Mild ITCHING Verified 04/10/21 07:26 Consultations 04/10/21 04:42 ED Decision to Admit Stat 04/10/21 10:19 Consult Gastroenterology Routine Consult Psychiatry Routine Hospital Course (1) Depression: (2) Suicide attempt by acetaminophen overdose: On presentation, Tylenol level was 100. LFTs were normal. Was started on NAC drip and monitored. Subsequent Tylenol level was 48. NAC drip was discontinued per protocol. Patient was monitored. LFTs today remain normal. Patient is medically cleared for transfer to inpatient psychiatry for continued management of major depression and suicidal ideation with medication adjustment as appropriate by the psychiatrist. Patient will need a new psychiatrist set up when ready for discharge from inpatient psychiatry as she stated that her previous outpatient psychiatrist is no longer available. Total Time Total Time Spent Total Time Spent (In Minutes): 35 Total Time Includes: Examination of the Patient, Discharge Planning, Medication Reconciliation and Communication With Other Providers Discharge Plan Discharge Items Patient Disposition: Transfer Behavioral Health Fac Reason For Visit: OVERDOSE ON TYLENOL AND ADAVAN Discharge Diagnosis: Intentional drug overdose Suicidal attempt Depression Activity: Resume your previous activity Non-emergency contact: Primary Care Provider and Psychiatrist Call non-emergency contact if: you have any medication questions and your symptoms worsen Follow-up/Referrals: Konrad Graham, DO [Primary Care Provider] - Diet: Regular Addtl Attending Provider Instructions: Mrs Flaherty You were brought to the hospital after overdose on medications in a suicidal attempt. You are being discharged to inpatient psychiatry unit for management of your depression. The psychiatrist will make final adjustments to your psychiatric medications prior to your discharge from the psychiatry unit. It is very important that you establish with a new psychiatrist on your discharge since you stated yours is no longer available. It was a pleasure taking care of you. Pending Studies at Discharge: No Stand-Alone Forms: My [facility] Medications and DC Order Prescriptions: Continued calcium carbonate 600 mg calcium (1,500 mg) Tablet 600 mg PO DAILY Qty: 0 RF: 0 cholecalciferol (vitamin D3) [Vitamin D3] 125 mcg (5,000 unit) Tablet 125 mcg PO DAILY Qty: 0 RF: 0 buspirone 10 mg tablet 10 mg PO BID RF: 0 vitamin B complex Tablet 1 tab PO DAILY RF: 0 methylsulfonylmethane [MSM] 1,000 mg Tablet 1,000 mg PO DAILY RF: 0 solifenacin 10 mg tablet 10 mg PO DAILY RF: 0 Trintellix 20 mg tablet 20 mg PO DAILY RF: 0 Estroven Menopause 400 mcg-40 mg- 40 mg-100 mg Tablet 1 tab PO DAILY RF: 0 Collagen Plus Vitamin C 1 tab PO DAILY RF: 0 multivitamin Tablet 1 tab PO DAILY RF: 0 magnesium 200 mg Tablet 400 mg PO DAILY RF: 0 Probiotic 3 billion cell Capsule 0 mmu cells PO DAILY RF: 0 Cbd Oil Sublingual 1 tab sublingual BID RF: 0 Discharge Orders: Discharge Order (Routine); Ordered 04/11/21 Ordered By: Cheryl Amaya Admission Data Admit Date/Time: 04/10/21 06:14 Attending Provider: Cheryl Amaya I. Admit Provider: Isra Carmona Primary Care Provider: Konrad Graham Other Providers: Isra Carmona ; Kirill Coello ; Ale Escalante ; Ruthie Buchanan ; Venessa Garcia ; Aram Alcantar
--- NOTE | 2021-04-11 17:52 | Electrocardiogram Report ---
Test Reason : Blood Pressure : / mmHG Vent. Rate : 071 BPM Atrial Rate : 071 BPM P-R Int : 124 ms QRS Dur : 082 ms QT Int : 396 ms P-R-T Axes : 053 084 040 degrees QTc Int : 430 ms Normal sinus rhythm Low voltage QRS Borderline ECG When compared with ECG of 10-APR-2021 15:46, No significant change was found Confirmed by Kp Qiu ([id number]) on 04/11/2021 5:52:19 PM Referred By: REFERRED SELF Confirmed By:Esteban Qiu
[2021-04-12 00:05] LABS: Marijuana Quant, GCMS Urine 73 ng/mL (<5)
== END 2021-04-11 15:19 ==
LOC: ED 02:59 → INTOOBSV 06:14 → EDINP 06:14

== ENCOUNTER 2021-04-11 13:48 | Inpatient (IN) ==
[2021-04-11] MEDS ORDERED: BISMUTH SUBSALICYLATE LIQD 236 ML PO PRN (13:58)
[2021-04-11] MEDS ORDERED: ACETAMINOPHEN 325 MG TAB PO PRN (13:58)
[2021-04-11] MEDS ORDERED: MAGNESIUM HYDROXIDE SUSP 30 ML UDC PO PRN (13:58)
[2021-04-11] MEDS ORDERED: hydrOXYzine HCl 25 MG TAB PO PRN (13:58)
[2021-04-11] MEDS ORDERED: SODIUM CHLORIDE 0.65% NA SOLN 45 ML (OCEAN) PRN (13:58)
[2021-04-11] MEDS ORDERED: ALUMINUM/MAGNESIUM SUSP 30 ML UDC PO PRN (13:58)
[2021-04-11] MEDS ORDERED: IBUPROFEN 200 MG TAB PO PRN (17:30)
[2021-04-11] MEDS: hydrOXYzine HCl 25 MG TAB PO PRN (22:51)
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
[2021-04-12] MEDS ORDERED: MELATONIN 3 MG TAB PO PRN (10:04)
[2021-04-12] MEDS: IBUPROFEN 800 MG TAB PO PRN ×2 (11:44→23:00)
[2021-04-12] MEDS: VORTIOXETINE HYDROBROMIDE 20 MG PO SCH (16:05)
[2021-04-12] MEDS: busPIRone 5 MG TAB PO SCH (21:23)
[2021-04-12] MEDS: hydrOXYzine HCl 25 MG TAB PO PRN (23:00)
[2021-04-13] MEDS ORDERED: [UNRECOGNIZED DRUG - OTHER] PO SCH (09:00)
[2021-04-13] MEDS: VORTIOXETINE HYDROBROMIDE 20 MG PO SCH (09:25)
[2021-04-13] MEDS: busPIRone 5 MG TAB PO SCH ×2 (09:25→21:15)
[2021-04-13] MEDS: IBUPROFEN 800 MG TAB PO PRN (11:05)
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
[2021-04-14] MEDS: IBUPROFEN 800 MG TAB PO PRN (06:18)
[2021-04-14] MEDS: busPIRone 5 MG TAB PO SCH (08:55)
[2021-04-14] MEDS: VORTIOXETINE HYDROBROMIDE 20 MG PO SCH (08:58)
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
== END 2021-04-14 10:31 | disposition home or self-care (01) | DRG 881 ==
LOC: SUATTDRO 13:58 → 3S 13:58